=== PATIENT | male | born 1985 | race Caucasian/White ===

== ENCOUNTER 2022-04-20 14:11 | Emergency (ER) | payer BC, MEDICAID ==
[2022-04-20] MEDS ORDERED: Lidocaine 1% 10 ML MDV INJECT ONE ×2 (15:26→16:07)
[2022-04-20] MEDS ORDERED: Lidocaine 1% 10 ML MDV ONE (16:08)
[2022-04-20] MEDS ORDERED: Cephalexin 500 MG Cap PO ONE (16:44)
== END 2022-04-20 16:58 | disposition home or self-care (01) ==
LOC: JD.ED 14:11
DX: S61.412A Laceration without foreign body of left hand, initial encounter (principal); F17.210 Nicotine dependence, cigarettes, uncomplicated; W26.0XXA Contact with knife, initial encounter
CPT/HCPCS: 12002; 99283; A9270